=== PATIENT | female | born 1940 | race Caucasian/White ===

== ENCOUNTER 2018-11-26 17:25 | Emergency (ER) | payer MEDICARE ==
[2018-11-26] MEDS: KETOROLAC 30 MG INJ IM (18:40)
== END 2018-11-26 19:53 | disposition home or self-care (01) ==
LOC: FTE 17:25
DX: S22.42XA Multiple fractures of ribs, left side, initial encounter for closed fracture (principal); I10 Essential (primary) hypertension; W01.198A Fall on same level from slipping, tripping and stumbling with subsequent striking against other object, initial encounter; Y92.9 Unspecified place or not applicable
CPT/HCPCS: 71100; 96372; 99284-25